=== PATIENT | female | born 1970 | race Caucasian/White ===

== ENCOUNTER → 2023-12-13 09:31 | Outpatient (BNVA) | payer SELFPAY | PROVIDERS: Visit Provider Nurse Practitioner Family | DX: I10 Essential (primary) hypertension (principal); E11.9 Type 2 diabetes mellitus without complications; E78.5 Hyperlipidemia, unspecified; Z79.899 Other long term (current) drug therapy | CPT/HCPCS: 80053; 80061; 83036; 84443; 85025 ==

== ENCOUNTER → 2024-01-12 08:58 | Outpatient (BNVA) | payer SELFPAY | PROVIDERS: PCP Nurse Practitioner Family; Visit Provider Nurse Practitioner Family | DX: R79.89 Other specified abnormal findings of blood chemistry | CPT/HCPCS: 80048; 84439; 84443; 84481 ==

== ENCOUNTER 2024-01-31 13:12 | Outpatient (CLI) | payer BC, SELFPAY ==
--- NOTE | 2024-01-31 13:30 | US_ITS ---
WS: [id number] THYROID ULTRASOUND HISTORY: R79.89 - Other specified abnormal findings of blood chemi... COMPARISON: None available. Right lobe: 2.1 cm x 1.8 cm x 5.5 cm (w x ap x l). Volume: 9.5 cm3. Slightly enlarged by very heterogeneous and nodular thyroid. Multiple ill-defined nodules. Some of th brittany nodules contain cystic components. The largest nodule in the mid gland measures 2.4 x 1.6 x 2.8 c m. No echogenic foci. Left lobe: 1.5 cm x 1.4 cm x 4.3 cm (w x ap x l). Volume: 4.4 cm3. Small gland in the gland does contain multiple small nodules. Some of these nodules contain cystic co mponent. Isthmus: 0.6 cm. Enlarged isthmus. Hypoechoic nodule in the RIGHT isthmus IMPRESSION: 1. Multinodular very heterogeneous thyroid most consistent with goiter. There are several nodules an d some of these contain significant amount of cystic component. There is no one discrete nodule for w hich biopsy should be recommended. Consider yearly ultrasound evaluation.
== END 2024-01-31 13:13 | disposition home or self-care (01) ==
LOC: RAD 13:14
PROVIDERS: PCP Nurse Practitioner Family; Visit Provider Nurse Practitioner Family
DX: R79.89 Other specified abnormal findings of blood chemistry (principal); E04.2 Nontoxic multinodular goiter
CPT/HCPCS: 76536

== ENCOUNTER → 2024-02-22 11:16 | Outpatient (BNVA) | payer BC, SELFPAY | PROVIDERS: PCP Nurse Practitioner Family; Visit Provider Nurse Practitioner Family | DX: E11.9 Type 2 diabetes mellitus without complications (principal) | CPT/HCPCS: 80053; 80061; 83036; 84443; 85025 ==